=== PATIENT | female | born 1960 | race Caucasian/White ===

== ENCOUNTER 2025-04-10 10:08 | Emergency (ER) | payer OTHER ==
[~2025-04-10] VITALS: Ht 167.6 cm; Wt 112.0 kg
[2025-04-10 10:12] VITALS: TEMP 97.1
--- NOTE | 2025-04-10 11:35 | Physician Documentation ---
History of Present Illness ~ Chief Complaint: Numbness Stated Complaint: FACE NUMBNESS X2 MONTHS Time Seen by MD: 10:39 Mode of Arrival: POV, Ambulatory HPI Patient is seen today with multiple complaints including facial numbness and brain fog and confusion and slow change in mental status over the last few months. Patient states he did have hip surgery six weeks ago as well as dental implant surgery a few months ago. Patient denies any previous history of stroke or heart disease. Patient states she was cleared by the branch service associate just six weeks ago for her hip surgery. Patient denies any syncope or loss of consciousness or recent head strike. Patient has no other concern or complaint at this time. Medication Reconciliation Allergies: Coded Allergies: No Known Allergies (Unverified , 06/26/24) Scheduled Amox Tr/Potassium Clavulanate (Augmentin 875-125 Tablet), 1 TAB PO Q12H Review of Systems Constitutional: Denies: chills, fever, weakness Eyes: Denies: pain, blurred vision ENT: Denies: ear pain, nose pain, throat pain, mouth pain Respiratory: Denies: cough, shortness of breath Cardiovascular: Denies: chest pain, palpitations Gastrointestinal: Denies: abdominal pain, nausea, vomiting Genitourinary: Denies: burning, dysuria Female Genitalia: Denies: vaginal discharge, pelvic pain Neurological: Denies: headache, dizziness Musculoskeletal: Denies: pain, swelling Integumentary: Denies: rash, lesions Allergic/Immunologic: Denies: hives, itching Hematologic/Lymphatic: Denies: no symptoms reported Psychiatric: Denies: depression, anxiety Physical Exam Vital Signs: Temperature: 97.1, Source: Temporal, Heart Rate: 87, Respiratory Rate: 16, BP: 168/102, Pulse Oximetry: 99, Weight: 112.000 Oxygen Flow Rate: 0 General Appearance General: Awake and Alert, no acute distress. HEENT: Patient on exam does have tenderness to palpation over the left maxillary sinus. I do not appreciate any swelling in that area. Conjunctiva pink, Sclera clear, Mucus Membranes moist. Neck: Supple without masses and tenderness. Resp: Unlabored. Lungs clear to auscultation bilaterally. Heart: Regular Rate and rhythm, normal S1 and S2 without murmur, rub or gallop. Abdomen: Soft and non tender no organomegaly Extremities: No cyanosis,clubbing or edema. Skin: Warm and Dry. Progress Results/Orders Results/Orders Orders - MILO SOLORZANO PAC Ct Head (04/10/25 11:44) Urinalysis, Cult If Indicated (04/10/25 11:29) Completed Orders - MILO SOLORZANO PAC Ct Head (04/10/25 11:44) Cbc/Diff (04/10/25 11:29) BMP (04/10/25 11:29) Vital Signs 04/10/25 04/10/25 04/10/25 10:12 10:37 12:18 Temp 97.1 Pulse 87 69 Resp 18 16 16 B/P (MAP) 168/102 140/80 (100) Pulse Ox 99 98 O2 Flow Rate 0 0 Laboratory Tests Test 04/10/25 12:13 White Blood Count 5.7 Red Blood Count 5.06 Hemoglobin 15.2 Hematocrit 45.3 H Mean Corpuscular Volume 89.4 Mean Corpuscular Hemoglobin 30.0 Mean Corpuscular Hemoglobin Concent 33.6 Red Cell Distribution Width 16.7 H Platelet Count 368 Mean Platelet Volume 7.6 Neutrophils (%) (Auto) 50.5 Lymphocytes (%) (Auto) 35.1 Monocytes (%) (Auto) 11.6 Eosinophils (%) (Auto) 2.1 Basophils (%) (Auto) 0.7 Neutrophils # (Auto) 2.9 Lymphocytes # (Auto) 2.0 Monocytes # (Auto) 0.7 Eosinophils # (Auto) 0.1 Basophils # (Auto) 0.0 CBC Comment Sodium Level 142 Potassium Level 4.0 Chloride Level 103 Carbon Dioxide Level 32.5 H Anion Gap 7 L Blood Urea Nitrogen 12 Creatinine 0.71 Estimated GFR/1.73 m2 83 BUN/Creatinine Ratio 16.9 Glucose Level 98 Calcium Level 8.6 Albumin 3.3 L Chemistry Comments EKG/XRAY/CT/US/VASC/MRI CT : Impression CAT SCAN Patient: JACK ARTEAGA Medical Record: [id number] [facility] : 1960, Age: 64 Sex: Female Location: ER Patient Status: REG ER Service Date/Time: 04/10/251143 Ordering Physician: MILO SOLORZANO PAC Exam: CT HEAD CT CT HEAD Indication: mental status change, face numbness EXAM DATE: 04/10/2025 11:36 AM COMPARISON: None TECHNIQUE: CT of the head without intravenous contrast. RADIATION DOSE: CTDIvol: 62 mGy, DLP: 1195 mGy*cm FINDINGS: There is no intracranial hemorrhage. There is no extra-axial fluid, mass, mass effect or midline shift. The ventricles are midline and normal in size. Basilar cisterns are patent. Salazar-white differentiation is maintained. Mastoids are well pneumatized. Left maxillary sinus mucosal thickening. Imaged portion of the orbits are unremarkable. IMPRESSION: No intracranial hemorrhage or mass effect. Left maxillary sinus disease. Electronically Signed by:DICKSON MARTÍNEZ MD Date & Time: 04/10/25 1208 Dictated by: DICKSON MARTÍNEZ MD Dictation date and time: 04/10/251143 Primary Care Provider: NO PRIMARY CARE PROVIDER cc: MILO SOLORZANO PAC ~ Medical Decision Making Additional information obtaine: N/A Findings Patient is seen today with multiple complaints including facial numbness and brain fog and confusion and slow change in mental status over the last few months. Patient states he did have hip surgery six weeks ago as well as dental implant surgery a few months ago. Patient denies any previous history of stroke or heart disease. Patient states she was cleared by the branch service associate just six weeks ago for her hip surgery. Patient denies any syncope or loss of consciousness or recent head strike. Patient has no other concern or complaint at this time. Patient did have CT scan of head that showed left maxillary disease sinusitis. Patient was given prescription for Augmentin 875/125 mg one tab by mouth twice a day for 14 days. Patient will follow up with primary care physician for possible referral to Respiratory therapist for possible change in options of CPAP machine that could potentially be causing a tension type headache. Patient could also possibly benefit from acupressure or acupuncture. Return to ED with any worsening, concerning or changing symptoms. Differential Dx:Considerations: Include: Anand's Palsey, CVA, Drug overdose, Encephalopathy, Hypoxemia, Hypoglycemia, TIA Departure Disposition: 01 HOME / SELF CARE / HOMELESS Impression: Primary Impression: Left maxillary sinusitis Additional Impression: Tension type headache Qualified Codes: G44.209 - Tension-type headache, unspecified, not intractable Condition: Stable Discharge Instructions: Sinus Infection, Adult Additional Instructions: Patient did have CT scan of head that showed left maxillary disease sinusitis. Patient was given prescription for Augmentin 875/125 mg one tab by mouth twice a day for 14 days. Patient will follow up with primary care physician for possible referral to Respiratory therapist for possible change in options of CPAP machine that could potentially be causing a tension type headache. Patient could also possibly benefit from acupressure or acupuncture. Return to ED with any worsening, concerning or changing symptoms. Referrals: NO PRIMARY CARE PROVIDER (PCP) Prescriptions Amox Tr/Potassium Clavulanate (Augmentin 875-125 Tablet) 1 Each Tablet 1 TAB PO Q12H for 14 Days, #28 TAB Prov: MILO SOLORZANO 04/10/25 Signature Scribe Signature: No scribe Attestation: No scribe MILO SOLORZANO Apr 10, 2025 11:35
--- NOTE | 2025-04-10 12:06 | RADIOLOGY REPORT ---
CT CT HEAD Indication: mental status change, face numbness EXAM DATE: 04/10/2025 11:36 AM COMPARISON: None TECHNIQUE: CT of the head without intravenous contrast. RADIATION DOSE: CTDIvol: 62 mGy, DLP: 1195 mGy*cm FINDINGS: There is no intracranial hemorrhage. There is no extra-axial fluid, mass, mass effect or midline shift. The ventricles are midline and normal in size. Basilar cisterns are patent. Salazar-white differentiation is maintained. Mastoids are well pneumatized. Left maxillary sinus mucosal thickening. Imaged portion of the orbits are unremarkable. IMPRESSION: No intracranial hemorrhage or mass effect. Left maxillary sinus disease.
[2025-04-10 12:35] LABS: MEAN PLATELET VOLUME 7.6 FL (7.4-10.4); RED CELL DISTRIBUTION WIDTH 16.7 % (11.5-14.5)
[2025-04-10 12:42] LABS: CREATININE 0.71 MG/DL (0.40-0.90); TOTAL CARBON DIOXIDE 32.5 MMOL/L (24-32); eCRCL 77 ML/MIN; eGFR 83 ML/MIN
[2025-04-10] MEDS ORDERED: AMOX-117 PO (12:47)
[2025-04-10 12:52] VITALS: BP 140/80; PULSE 69; RESP 16; O2SAT 98
== END 2025-04-10 12:56 | disposition home or self-care (01) ==
LOC: ER 10:09
DX: J32.0 Chronic maxillary sinusitis (principal); G44.209 Tension-type headache, unspecified, not intractable
CPT/HCPCS: 36415; 70450; 80048; 85025; 99284

== ENCOUNTER 2025-04-27 16:21 | Emergency (ER) | payer OTHER ==
[~2025-04-27] VITALS: Ht 170.2 cm; Wt 114.3 kg
[2025-04-27 16:41] VITALS: BP 165/68; PULSE 79; RESP 16; TEMP 98.6; O2SAT 98
--- NOTE | 2025-04-27 16:55 | Physician Documentation ---
History of Present Illness ~ Chief Complaint: Leg Pain Stated Complaint: HIP PAIN HPI MSE: Is a very pleasant 64-year-old female that presents to the emergency department for evaluation of right lower extremity pain. Patient underwent a total hip replacement approximately 8 weeks ago without complication. Patient reports that she has developed significant pain and swelling in her right lower extremity over the last several days. Extends from her lower leg to the medial aspect of her thigh. Patient reports that she spoke with her surgeon regarding this these findings her surgeon and primary care provider would like her to come in to have an ultrasound performed to rule out a clot at next extremity today. Patient denies any other symptoms at this time. Tetanus witin 5 years: Yes Medication Reconciliation Allergies: Coded Allergies: No Known Allergies (Unverified , 04/27/25) Discontinued Medications Amox Tr/Potassium Clavulanate (Augmentin 875-125 Tablet), 1 TAB PO Q12H Discontinued Reason: Auto Discontinued Physical Exam Vital Signs: Temperature: 98.6, Heart Rate: 79, Respiratory Rate: 16, BP: 165/68, Pulse Oximetry: 98, Weight: 114.300 Oxygen Flow Rate: 0 Progress Results/Orders Results/Orders Vital Signs 04/27/25 16:41 Temp 98.6 Pulse 79 Resp 16 B/P (MAP) 165/68 Pulse Ox 98 O2 Flow Rate 0 Departure Referrals: NO PRIMARY CARE PROVIDER (PCP) JAZMINE SANTIAGO Apr 27, 2025 16:55
== END 2025-04-27 20:48 | disposition left against medical advice (07) ==
LOC: ER 16:22
DX: M79.604 Pain in right leg (principal); Z53.21 Procedure and treatment not carried out due to patient leaving prior to being seen by health care provider
CPT/HCPCS: 99281